=== PATIENT | female | born 1955 | race Caucasian/White ===

== ENCOUNTER → 2023-10-14 12:33 | Outpatient (CLI) | payer MEDICARE, OTHER, SELFPAY ==
--- NOTE | 2023-10-14 12:56 | DI.RAD.S_ITS ---
PROCEDURE: XR ELBOW RT MIN 3V INDICATIONS: olecranon swelling, spider bite TECHNIQUE: 3 views of the elbow were acquired. COMPARISON: None. FINDINGS: Bones: No acute displaced fracture or dislocation. Probable enthesopathic changes at the lateral humeral epicondyle. Soft tissues: No significant joint effusion. There is soft tissue swelling. IMPRESSION: No acute osseous abnormality. Possible soft tissue swelling. No significant joint effusion. If there is high concern for further derangement, consider MRI evaluation. Dictated by: Pedro Pablo Thapa M.D. on 10/14/2023 at 13:11 Approved by: Pedro Pablo Thapa M.D. on 10/14/2023 at 13:11
== END ==
PROVIDERS: Referring Provider Student in an Organized Health Care Education/Training Program; Visit Provider Student in an Organized Health Care Education/Training Program
DX: T63.301A Toxic effect of unspecified spider venom, accidental (unintentional), initial encounter (principal); M25.429 Effusion, unspecified elbow
CPT/HCPCS: 73080